=== PATIENT | male | born 1970 | race Hispanic/Latino ===

== ENCOUNTER 2016-08-12 10:30 | Emergency (ER) | payer OTHER ==
[~2016-08-12] VITALS: Ht 172.7 cm; Wt 97.5 kg
--- NOTE | 2016-08-12 10:54 | ED HAND/WRIST INJURY COMPLAINT ---
History of Present Illness General Chief Complaint: Laceration Procedure Stated Complaint: WORK RELATED INJURY,LAC TO R HAND THUMB FINGER Source: patient, old records Exam Limitations: no limitations Vital Signs & Intake/Output Vital Signs & Intake/Output Vital Signs Date Time Temp Pulse Resp B/P B/P Pulse O2 O2 Flow FiO2 Mean Ox Delivery Rate 08/12 1150 98.0 70 20 130/78 98 Room Air ED Intake and Output 08/13 0000 08/12 1200 Intake Total Output Total Balance Patient 215 lb Weight Weight Reported by Patient Measurement Method Allergies Coded Allergies: No Known Allergies (08/12/16) Reconcile Medications No Known Home Medications Triage Note: LACERATION TO RIGHT HAND WHILE AT WORK USING A DRILL Triage Nurses Notes Reviewed? yes Occurred: just prior to arrival Duration: hour(s): (1), constant Timing: recent history Injury Environment: work Severity: mild, moderate Severity Numbers: 4 Pain/Injury Location: Right: Hand. Context: laceration Method of Injury: laceration No Modifying Factors: none Associated Symptoms: none HPI: 46-year-old male presents to the ER for evaluation status post sustaining laceration to his right hand just prior to arrival at work when a drill slipped sustaining laceration. He is left-hand dominant. His last tetanus is unknown. He denies any pain numbness tingling or difficulty with range of motion of the finger. No modifying factors or associated symptoms otherwise. (JUICE FOLEY) Past History Travel History Traveled to [place] past 21 day No Medical History Any Pertinent Medical History? none Surgical History Surgical History: none Psychosocial History What is your primary language Grenadian Tobacco Use: Never used ETOH Use: occasional use Illicit Drug Use: denies illicit drug use Family History Hx Contributory? No (JUICE FOLEY) Review of Systems Review of Systems Constitutional: Reports: see HPI. All Other Systems: Reviewed and Negative Comments Review of systems: See HPI, All other systems negative. Constitutional, no chills no fever, no malaise HEENT: no sore throat no congestion Cardiovascular: No chest pain , no palpitation Skin: no change in skin Respiratory: No dyspnea no cough no sputum GI: No nausea no vomiting, : No dysuria Muscle skeletal: No joint pain, no back pain, no neck pain, Neurologic: no headache Psych: No stress Heme/endocrine: No bruising Immunology: No lymphadenopathy (JUICE FOLEY) Physical Exam Physical Exam General Appearance: well developed/nourished, alert, awake Hand Left: normal inspection, normal range of motion Hand Right: lacerations Comments: Well-developed well-nourished patient in no apparent distress. HEENT: Atraumatic, extraocular motion intact Neck: Supple, FROM Back: FROM There is a 2.5 cm superficial linear laceration noted over the dorsal right first metacarpal there is no deep tendon injury visualized no visualized or palpated foreign body there is full sensation noted to the right first finger no active bleeding the rest of the hand is atraumatic Respiratory: No respiratory distress. Patient speaking in full complete sentences. Breath sounds clear to auscultation bilaterally: NO W/R/R Shoulder: Atraumatic/Stable. FROM . Elbow: Atraumatic/stable. FROM. No laxity Upper arm/Forearm: Atraumatic. Nontender. No edema, 5 out of 5 neurology tech strength noted to bilateral upper extremities Hand/Wrist: Atraumatic/stable. Skin intact. FROM Pulses: Normal/equal radial pulses bilaterally. Brisk cap refill Lower extremities atraumatic 4 range motion Neuro: awake, alert, and oriented to person, place and time. There were no obvious focal neurologic abnormalities. Skin: Warm & dry;No appreciable rash on exposed skin Psych: Mood affect normal, normal memory normal judgment. Diagram Hands Back 1) Laceration as described above (JUICE FOLEY) Progress Differential Diagnosis: contusion, FX. SPRAIN, CONTUSION, LACERATION Plan of Care: Wound is thoroughly irrigated with normal saline Betadine and peroxide. After being anesthetized by lidocaine 1% 5 mL sutures 3-0 X 5 blood by me patient tolerated procedure well as are all his questions discussed with him the possibility of foreign body or tendon injury not seen on examination still exist to return anytime sooner with any signs of concern or infection he feels comfortable this plan cleared for discharge (JUICE FOLEY) Departure Departure Time of Disposition: 113 Disposition: HOME OR SELF CARE Condition: Stable Clinical Impression Primary Impression: Hand laceration involving tendon Referrals: PATIENT HAS NO PRIMARY CARE DR (PCP/Family) Additional Instructions: Keep area clean and covered as discussed, bacitracin daily. Return to ER in 7- 10 days for suture removal. Please understand that foreign bodies such as glass or wood may not be visible to the naked eye or on plain x-rays. If the wound becomes red, swollen, increasingly more painful or if there is any drainage from the wound, please have it reevaluated by a physician for the possibility of a retained foreign body. Departure Forms: Customer Survey Employee Industrial Accident General Discharge Information Prescriptions: Current Visit Scripts No Known Home Medications (JUICE FOLEY) PA/RECLAMATION WORKER Co-Sign Statement Statement: ED Attending supervision documentation- [] I saw and evaluated the patient. I have also reviewed all the pertinent lab results and diagnostic results. I agree with the findings and the plan of care as documented in the PA's/RECLAMATION WORKER's documentation. [X] I have reviewed the ED Record and agree with the PA's/RECLAMATION WORKER's documentation. [] Additions or exceptions (if any) to the PAs/RECLAMATION WORKER's note and plan are summarized below: [] (WALESKA ARTHUR,PARRISH) Procedures Laceration/Wound Repair Laceration/Wound Repair: Wound Location: R HAND Wound's Depth, Shape: linear, superficial Wound Length (cm): 2.5 Wound Explored: clean, no foreign body removed, irrigated extensively Irrigated w/ Saline (ccs): 100 Betadine Prep? Yes Anesthesia: 1% lidocaine Wound Repaired With: sutures Suture Size/Type: 3:0 Number of Sutures: 5 Layer Closure? No Sterile Dressing Applied: Yes Date of Last Tetanus: 08/12/16 Tetanus Status: not up to date (JUICE FOLEY)
[2016-08-12 11:50] VITALS: BP 130/78
== END 2016-08-12 11:51 ==
LOC: ERH 10:30
DX: S61.411A Laceration without foreign body of right hand, initial encounter (principal); W29.8XXA Contact with other powered hand tools and household machinery, initial encounter; Y92.9 Unspecified place or not applicable; Y93.9 Activity, unspecified
CPT/HCPCS: 90714

== ENCOUNTER 2016-08-20 16:25 | Emergency (ER) | payer OTHER ==
[~2016-08-20] VITALS: Ht 172.7 cm; Wt 95.3 kg
[2016-08-20 16:28] VITALS: BP 137/85
--- NOTE | 2016-08-20 16:55 | ED ANIMAL BITE/WOUND CHECK ---
History of Present Illness General Chief Complaint: Suture Removal/Wound Recheck Stated Complaint: SUTURE REMOVAL Source: patient, old records Exam Limitations: no limitations Vital Signs & Intake/Output Vital Signs & Intake/Output Vital Signs Date Time Temp Pulse Resp B/P B/P Pulse O2 O2 Flow FiO2 Mean Ox Delivery Rate 08/20 1628 97.6 82 16 137/85 95 Allergies Coded Allergies: No Known Allergies (08/12/16) Reconcile Medications No Known Home Medications Triage Note: PT HERE FOR SUTURE REMOVAL PLACED ON THE 08/12 RIGHT HAND. Triage Nurses Notes Reviewed? yes Onset: Abrupt Duration: day(s): (8), better Timing: remote history Injury Environment: work Is Injury an Animal Bite? No Severity: mild Severity Numbers: 1 No Modifying Factors: none Associated Symptoms: DENIES HPI: 46-year-old male presents for suture removal status post sustaining a laceration 8 days ago for which she was seen here by myself requiring 5 sutures. The patient denies any complaints no fever chills redness warmth discharge or difficulty with range of motion of the joint. He denies any other complaints. No modifying factors or associated symptoms otherwise (JUICE FOLEY) Past History Travel History Traveled to [place] past 21 day No Medical History Any Pertinent Medical History? none Tetanus Vaccine: 08/12/16 Surgical History Surgical History: none Psychosocial History What is your primary language Croatian Tobacco Use: Never used ETOH Use: denies use Illicit Drug Use: denies illicit drug use Family History Hx Contributory? No (JUICE FOLEY) Review of Systems Review of Systems Constitutional: Reports: see HPI. All Other Systems: Reviewed and Negative Comments Review of systems: See HPI, All other systems negative. Constitutional, no chills no fever, no malaise HEENT: No visual changes no sore throat no congestion Cardiovascular: No chest pain , no palpitation Skin: no rashes, no change in skin Respiratory: No dyspnea no cough no sputum GI: No nausea no vomiting, no diarrhea, Muscle skeletal: No joint pain, no joint swelling, no back pain Neurologic: No numbnessno headache Psych: No stress Heme/endocrine: No bruising Immunology: No lymphadenopathy (JUICE FOLEY) Physical Exam Physical Exam General Appearance: well developed/nourished, no apparent distress, alert, awake , comfortable Comments: Well-developed well-nourished patient in no apparent distress. HEENT: Atraumatic, extraocular motion intact Neck: Supple, FROM Back: FROM Cardiovascular: Regular rate and rhythms no murmurs Respiratory: No respiratory distress. Patient speaking in full complete sentences. Breath sounds clear to auscultation bilaterally: NO W/R/R Extremities: [address] to the right first finger, there is no surrounding induration fluctuance swelling full range of motion Neuro: awake, alert, and oriented to person, place and time. There were no obvious focal neurologic abnormalities. Skin: Warm & dry;No appreciable rash on exposed skin Psych: Mood affect normal, normal memory normal judgment. (JUICE FOLEY) Progress Differential Diagnosis: abscess, cellulitis, joint infection, tenosysnovitis Plan of Care: Sutures 5 removed by me, No wound dehiscence. Patient tolerated procedure well i answered all his questions he feels comfortable with plan, return precautions were discussed the patient (JUICE FOLEY) Departure Departure Time of Disposition: 1703 Disposition: HOME OR SELF CARE Condition: Stable Clinical Impression Primary Impression: Visit for suture removal Referrals: PATIENT HAS NO PRIMARY CARE DR (PCP/Family) Additional Instructions: FOLLOW UP WITH YOUR PMD, OR RETURN TO THE ER WITH ANY CONCERNS Departure Forms: Customer Survey General Discharge Information Prescriptions: Current Visit Scripts No Known Home Medications (JUICE FOLEY) PA/CASH CLERK Co-Sign Statement Statement: ED Attending supervision documentation- [] I saw and evaluated the patient. I have also reviewed all the pertinent lab results and diagnostic results. I agree with the findings and the plan of care as documented in the PA's/CASH CLERK's documentation. [x] I have reviewed the ED Record and agree with the PA's/CASH CLERK's documentation. [] Additions or exceptions (if any) to the PAs/CASH CLERK's note and plan are summarized below: [] (MARCO GUTHRIE DO)
== END 2016-08-20 17:20 ==
LOC: ERH 16:25
DX: S61.411A Laceration without foreign body of right hand, initial encounter (principal); X58.XXXA Exposure to other specified factors, initial encounter; Y92.9 Unspecified place or not applicable; Y93.9 Activity, unspecified
CPT/HCPCS: 99281